=== PATIENT | female | born 1975 | race Caucasian/White ===

== ENCOUNTER 2018-01-30 15:47 | Emergency (ER) | payer OTHER ==
[~2018-01-30] VITALS: Ht 154.9 cm; Wt 78.0 kg
[2018-01-30] MEDS ORDERED: IBUPROFEN 600MG TABLET PO ONE (21:15)
[2018-01-30 21:19] VITALS: BP 145/92
== END 2018-01-30 21:22 | disposition home or self-care (01) ==
LOC: ER 16:55
DX: M79.672 Pain in left foot (principal)
CPT/HCPCS: 73630; 99284